=== PATIENT | male | born 1960 | race Caucasian/White ===

== ENCOUNTER 2016-06-21 21:13 | Inpatient (IN) | payer BC ==
[~2016-06-21] VITALS: Ht 185.4 cm; Wt 100.0 kg
[~2016-06-21 21:13] MED LIST: ASPI81TA11 PO; BRIL90TA PO; CARV3.125 PO; LIPI40TA PO; PERC5TAB12 PO; PRIN10TA PO; SYNT88TA PO
[2016-06-21 21:21] VITALS: BP 131/75; PULSE 96; RESP 16; TEMP 98; O2SAT 96
[2016-06-21] MEDS ORDERED: ASPIRIN 325 MG TAB ONE (21:29)
[2016-06-21] MEDS ORDERED: SODIUM CHLOR 0.9% 1000 ML INJ 1,000 ML IV SCH (21:30)
[2016-06-21] MEDS ORDERED: ASPIRIN 81 MG CHEW TAB CHEW ONE (21:30)
[2016-06-21] MEDS ORDERED: NITROGLYCERIN 0.4 MG SL 25 TABS/BTL SL ONE (21:30)
[2016-06-21] MEDS ORDERED: NITROGLYCERIN 2% OINT 1 GM PACKET TOP ONE (21:30)
[2016-06-21] MEDS ORDERED: SODIUM CHLORIDE 0.9% FLUSH 5 ML FLUSH IVF PRN ×2 (21:30→23:45)
--- NOTE | 2016-06-21 21:47 | RADRPT ---
EXAM DATE/TIME: 06/21/2016 21:23 [place] COMPARISON: CHEST SINGLE AP, May 29, 2016, 4:29. INDICATIONS : Chest pain. MEDICAL HISTORY : Hypertension. Chronic obstructive pulmonary disease. SURGICAL HISTORY : Stent placement. ENCOUNTER: Initial ACUITY: 1 day PAIN SCORE: 8/10 LOCATION: Bilateral chest FINDINGS: Mild bibasilar infiltrates seen, left more so than right. No large effusion. No pneumothorax. Heart size stable, upper limits of normal. CONCLUSION: Mild left greater than right basilar infiltrates. Mario Hill MD on June 21, 2016 at 21:44 Board Certified Radiologist. This report was verified electronically.
[2016-06-21 21:55] LABS: AUTOMATED NEUTROPHIL # 10.8 TH/MM3 (1.8-7.7); BASOPHIL # 0.2 TH/MM3 (0-0.2); BASOPHIL % 1.4 % (0.0-2.0); EOSINOPHIL # 0.5 TH/MM3 (0-0.4); HEMATOCRIT 44.6 % (39.0-51.0); HEMO FLAGS DIFF FINAL; LYMPH % 16.3 % (9.0-44.0); LYMPHOCYTE # 2.4 TH/MM3 (1.0-4.8); MEAN CORPUSCULAR HEMOGLOBIN 29.3 PG (27.0-34.0); MEAN CORPUSCULAR HGB CONC 34.5 % (32.0-36.0); MONO % 7.2 % (0.0-8.0); NEUT % 72.1 % (16.0-70.0); PLATELET COUNT 348 TH/MM3 (150-450); RED BLOOD COUNT 5.24 MIL/MM3 (4.50-5.90); RED CELL DISTRIBUTION WIDTH 13.5 % (11.6-17.2)
[2016-06-21 22:00] VITALS: BP 137/74; PULSE 87; RESP 16; O2SAT 97
[2016-06-21] MEDS ORDERED: NITROGLYCERIN-DEXTROSE INJ 250 ML IV ONE (22:00)
[2016-06-21] MEDS ORDERED: SODIUM CHLOR 0.9% 250 ML INJ 250 ML IV ONE (22:00)
[2016-06-21] MEDS ORDERED: MORPHINE SULFATE 4 MG/ML INJ IV PUSH ONE (22:00)
[2016-06-21] MEDS ORDERED: ONDANSETRON HCL 4 MG/2 ML VIAL IV PUSH ONE (22:00)
[2016-06-21 22:03] LABS: INTERNATIONAL NORMALIZED RATIO 1.1 RATIO; PROTHROMBIN TIME - PATIENT 11.7 SEC (9.8-11.6)
[2016-06-21 22:13] LABS: MAGNESIUM 2.1 MG/DL (1.5-2.5); POTASSIUM 3.7 MEQ/L (3.5-5.1)
[2016-06-21 23:00] VITALS: BP 136/63; PULSE 78; RESP 16; O2SAT 98
--- NOTE | 2016-06-21 23:28 | PD ---
HPI Chief Complaint: Chest Pain Time Seen by Provider: 21:24 Travel History International Travel<30 days: No Contact w/Intl Traveler<30days: No Traveled to known affect area: No History of Present Illness HPI 55-year-old male presents to the emergency department for complaint of retrosternal chest pain radiating into his left upper extremity with some mild shortness of breath and nausea. Patient was recently hospitalized 05/29/16 with a STEMI and underwent stenting of the right coronary vessel for an acute inferior MN. Patient was identified at that time to have LAD disease as well. Patient subsequently underwent repeat cardiac catheterization 06/10/16 and had stenting of the left anterior descending coronary vessel at that time. Patient in the care of Dr. Sunny Gustafson. Patient states that he ran out of sofatutor toe 2 days ago and has not been able to refill the prescription. Patient continues to smoke cigarettes. Patient is also had a dry nonproductive cough. Patient does not report any fever or chills. There is been no hemoptysis. Patient does not report any hematemesis coffee-ground emesis melena hematochezia. Patient's had no near-syncope or syncope. Presently patient is chest pain-free after sublingual nitroglycerin provided by EMS in transport. Patient is also administered aspirin. PFSH Past Medical History Narrative Medical CAD myocardial infarction cardiac catheterization with stenting 2 hypothyroidism eye surgery tobacco use nursing notes reviewed Cancer: No Cardiovascular Problems: Yes (+MN/STENT) Chest Pain: Yes Diabetes: No Diminished Hearing: No Endocrine: No Gastrointestinal Disorders: No Genitourinary: No Hepatitis: No Hiatal Hernia: No Hypertension: Yes Immune Disorder: No Musculoskeletal: No Neurologic: No Psychiatric: No Reproductive: No Respiratory: No Integumentary: No Immunizations Current: Yes Thyroid Disease: Yes Past Surgical History Abdominal Surgery: No Cardiac Surgery: No Ear Surgery: No Endocrine Surgery: No Eye Surgery: Yes (LENS LEFT EYE) Genitourinary Surgery: No Gynecologic Surgery: No Pacemaker: No Thoracic Surgery: No Other Surgery: Yes (IN DOCTOR OFFICE) Social History Alcohol Use: Yes Tobacco Use: Yes (1PPD) Substance Use: No Allergies-Medications (Allergen,Severity, Reaction): Coded Allergies: No Known Allergies (Unverified , 06/09/16) Reported Meds & Prescriptions Reported Meds & Active Scripts Active Reported Synthroid (Levothyroxine Sodium) 88 Mcg Tab 88 Mcg PO DAILY Prinivil (Lisinopril) 10 Mg Tab 10 Mg PO DAILY Lipitor (Atorvastatin Calcium) 40 Mg Tab 40 Mg PO HS Coreg (Carvedilol) 3.125 Mg Tab 3.125 Mg PO BID Brilinta (Ticagrelor) 90 Mg Tab 90 Mg PO BID Aspirin EC (Aspirin) 81 Mg Tabdr 81 Mg PO DAILY Percocet (Oxycodone-Acetaminophen) 5-325 mg Tab 2 Tab PO Q4H PRN Review of Systems Except as stated in HPI: all other systems reviewed are Neg Physical Exam Narrative GENERAL: Well-developed well-nourished male in no acute distress no respiratory distress SKIN: Warm and dry. HEAD: Normocephalic. EYES: No scleral icterus. No injection or drainage. NECK: Supple, trachea midline. No JVD or lymphadenopathy. CARDIOVASCULAR: Regular rate and rhythm without murmurs, gallops, or rubs. RESPIRATORY: Breath sounds equal bilaterally. No accessory muscle use. GASTROINTESTINAL: Abdomen soft, non-tender, nondistended. MUSCULOSKELETAL: No cyanosis, or edema. BACK: Nontender without obvious deformity. No CVA tenderness. Data Data Last Documented VS Vital Signs Date Time Temp Pulse Resp B/P Pulse Ox O2 Delivery O2 Flow Rate FiO2 06/21/16 23:00 78 16 136/63 98 Room Air 06/21/16 21:21 98.0 Orders Electrocardiogram (06/21/16 21:24) Basic Metabolic Panel (Bmp) (06/21/16 21:24) Ckmb (Isoenzyme) Profile (06/21/16 21:24) Complete Blood Count With Diff (06/21/16 21:24) Magnesium (Mg) (06/21/16 21:24) Prothrombin Time / Inr (Pt) (06/21/16 21:24) Act Partial Throm Time (Ptt) (06/21/16 21:24) Troponin I (06/21/16 21:24) Chest, Single Ap (06/21/16 21:24) Ecg Monitoring (06/21/16 21:24) Bilateral Bp Monitoring (06/21/16 21:24) Iv Access Insert/Monitor (06/21/16 21:24) Oximetry (06/21/16 21:24) Oxygen Administration (06/21/16 21:24) Nitroglycerin 2% Oint (Nitroglycerin 2% (06/21/16 21:30) Sodium Chloride 0.9% Flush (Ns Flush) (06/21/16 21:30) Sodium Chlor 0.9% 1000 Ml Inj (Ns 1000 M (06/21/16 21:30) Aspirin (Aspirin) (06/21/16 21:29) Nitroglycerin Sl (Nitrostat Sl) (06/21/16 21:30) Aspirin Chew (Aspirin Chew) (06/21/16 21:30) Ondansetron Inj (Zofran Inj) (06/21/16 22:00) Electrocardiogram (06/21/16 ) Nitroglycerin-Dextrose Inj (Nitroglyceri (06/21/16 22:00) Morphine Inj (Morphine Inj) (06/21/16 22:00) Sodium Chlor 0.9% 250 Ml Inj (Ns 250 Ml (06/21/16 22:00) Lactic Acid (06/21/16 22:38) Blood Culture (06/21/16 22:38) Ticagrelor (Brilinta) (06/21/16 23:30) Heparin Infusion EDMUNDO.Q1H (06/21/16 23:28) Heparin Inj (Heparin Inj) (06/21/16 23:30) Heparin-D5w Inj (Heparin-D5w Inj) (06/21/16 23:30) Cbc No Diff, Includes Plts (06/24/16 06:00) Act Partial Throm Time (Ptt) (06/22/16 06:28) Occult Blood (Hemoccult) Stool (06/21/16 23:28) Place In Observation (06/21/16 ) Vital Signs (Adult) Q4H (06/21/16 23:42) Activity Oob With Assistance (06/21/16 23:42) ^ Window Systems Administrator / Telemetry .CONTINUOUS (06/21/16 23:42) Intake + Output EDMUNDO.QSHIFT (06/21/16 23:42) Sodium Chloride 0.9% Flush (Ns Flush) (06/21/16 23:45) Sodium Chloride 0.9% Flush (Ns Flush) (06/22/16 09:00) Ondansetron Inj (Zofran Inj) (06/21/16 23:45) Complete Blood Count With Diff (06/22/16 06:00) Creatine Kinase (Cpk) (06/22/16 04:00) Creatine Kinase (Cpk) (06/22/16 10:00) Troponin I (06/22/16 04:00) Troponin I (06/22/16 10:00) Electrocardiogram (06/22/16 04:00) Electrocardiogram (06/22/16 10:00) Naloxone Inj (Narcan Inj) (06/21/16 23:45) Admit Order (Ed Use Only) (06/21/16 ) ^ Saline Lock (06/21/16 23:42) Resp Oxygen Raghu C Titrat 1-4 L (06/21/16 ) ^ Notify Dr: Other (06/21/16 23:42) Sodium Chloride 0.9% Flush (Ns Flush) (06/22/16 09:00) Sodium Chloride 0.9% Flush (Ns Flush) (06/21/16 23:45) Consult Cardiology (06/21/16 23:42) Aspirin Ec (Ecotrin Ec) (06/22/16 09:00) Atorvastatin (Lipitor) (06/22/16 21:00) Carvedilol (Coreg) (06/22/16 09:00) Levothyroxine (Synthroid) (06/22/16 06:00) Lisinopril (Prinivil) (06/22/16 09:00) Ticagrelor (Brilinta) (06/22/16 09:00) Ceftriaxone Inj (Rocephin Inj) (06/21/16 23:45) Azithromycin Inj (Zithromax Inj) (06/21/16 23:45) Basic Metabolic Panel (Bmp) (06/22/16 04:00) Labs Laboratory Tests Test 06/21/16 06/21/16 21:36 23:31 White Blood Count 15.0 TH/MM3 Red Blood Count 5.24 MIL/MM3 Hemoglobin 15.4 GM/DL Hematocrit 44.6 % Mean Corpuscular Volume 85.0 FL Mean Corpuscular Hemoglobin 29.3 PG Mean Corpuscular Hemoglobin 34.5 % Concent Red Cell Distribution Width 13.5 % Platelet Count 348 TH/MM3 Mean Platelet Volume 7.5 FL Neutrophils (%) (Auto) 72.1 % Lymphocytes (%) (Auto) 16.3 % Monocytes (%) (Auto) 7.2 % Eosinophils (%) (Auto) 3.0 % Basophils (%) (Auto) 1.4 % Neutrophils # (Auto) 10.8 TH/MM3 Lymphocytes # (Auto) 2.4 TH/MM3 Monocytes # (Auto) 1.1 TH/MM3 Eosinophils # (Auto) 0.5 TH/MM3 Basophils # (Auto) 0.2 TH/MM3 CBC Comment DIFF FINAL Differential Comment Prothrombin Time 11.7 SEC Prothromb Time International 1.1 RATIO Ratio Activated Partial 25.0 SEC Thromboplast Time Sodium Level 138 MEQ/L Potassium Level 3.7 MEQ/L Chloride Level 103 MEQ/L Carbon Dioxide Level 27.0 MEQ/L Anion Gap 8 MEQ/L Blood Urea Nitrogen 18 MG/DL Creatinine 1.12 MG/DL Estimat Glomerular Filtration 68 ML/MIN Rate Random Glucose 218 MG/DL Calcium Level 8.3 MG/DL Magnesium Level 2.1 MG/DL Total Creatine Kinase 63 U/L Troponin I 0.03 NG/ML Lactic Acid Level 1.4 mmol/L [facility] Medical Decision Making Medical Screen Exam Complete: Yes Emergency Medical Condition: Yes Medical Record Reviewed: Yes Interpretation(s) EKG normal sinus rhythm no ST elevation or acute injury pattern change noted Chest x-ray basilar infiltrates left greater than right Laboratory Tests Test 06/21/16 06/21/16 21:36 23:31 White Blood Count 15.0 TH/MM3 Red Blood Count 5.24 MIL/MM3 Hemoglobin 15.4 GM/DL Hematocrit 44.6 % Mean Corpuscular Volume 85.0 FL Mean Corpuscular Hemoglobin 29.3 PG Mean Corpuscular Hemoglobin 34.5 % Concent Red Cell Distribution Width 13.5 % Platelet Count 348 TH/MM3 Mean Platelet Volume 7.5 FL Neutrophils (%) (Auto) 72.1 % Lymphocytes (%) (Auto) 16.3 % Monocytes (%) (Auto) 7.2 % Eosinophils (%) (Auto) 3.0 % Basophils (%) (Auto) 1.4 % Neutrophils # (Auto) 10.8 TH/MM3 Lymphocytes # (Auto) 2.4 TH/MM3 Monocytes # (Auto) 1.1 TH/MM3 Eosinophils # (Auto) 0.5 TH/MM3 Basophils # (Auto) 0.2 TH/MM3 CBC Comment DIFF FINAL Differential Comment Prothrombin Time 11.7 SEC Prothromb Time International 1.1 RATIO Ratio Activated Partial 25.0 SEC Thromboplast Time Sodium Level 138 MEQ/L Potassium Level 3.7 MEQ/L Chloride Level 103 MEQ/L Carbon Dioxide Level 27.0 MEQ/L Anion Gap 8 MEQ/L Blood Urea Nitrogen 18 MG/DL Creatinine 1.12 MG/DL Estimat Glomerular Filtration 68 ML/MIN Rate Random Glucose 218 MG/DL Calcium Level 8.3 MG/DL Magnesium Level 2.1 MG/DL Total Creatine Kinase 63 U/L Troponin I 0.03 NG/ML Lactic Acid Level 1.4 mmol/L Differential Diagnosis Chest pain, ACS, myocardial infarction, atypical chest pain, esophageal spasm, aortic dissection, pneumonia Narrative Course Patient placed on monitor and storage bin tender IV access obtained specimens collected and sent for resulting patient administered Nitropaste to chest wall EKG sinus rhythm without acute ST elevation or injury pattern change Chest x-ray remarkable for basilar atelectasis/infiltrate left greater than right Patient reports having recurrent chest discomfort feeling lightheaded and diaphoretic patient reassessed; Nitropaste removed as concern for possible hypotensive response to Nitropaste to chest wall patient placed supine Zofran 4 mg IV administered blood pressure is stable therefore Nitropaste was In place and patient was administered morphine 3 mg IV as well as IV fluid bolus next line patient feels well no further chest pain plan to initiate nitroglycerin IV deferred. Patient identified to have infiltrates bibasilarly lactic acid obtained along with blood cultures and presumptive IV antibiotics administered. Patient's case discussed with on-call crinkling machine operator Dr. Huynh covering for patient's crinkling machine operator Dr. Sunny Gustafson. Patient will be admitted to medicine with consult to Dr. Gustafson patient started on heparin with bolus and continued on Brilinta. Patient is aware plan for admission and is agreeable to this remains asymptomatic. Patient will be managed with nitroglycerin aspirin Brilinta heparin and supplemental oxygen, remains asymptomatic at this time for concern for ACS versus non-STEMI is still a significant concern in this patient has required re-catheterization 06/10/16 after initial catheterization 05/29/16. Initial troponin I 0.[address] called to Dr. Sunny Gustafson-case discussed with Dr. Huynh-recommends resuming brilinta, is aware plan to add heparin and recommends with bolus as well as continue nitro paste and aspirin with recommendation for observation admission to medicine and consult to Dr. Gustafson in the a.m.; case discussed with Dr. Mae who graciously accepts the patient for admission Diagnosis Primary Impression: Chest pain Qualified Code: R07.2 - Precordial pain Additional Impression: Pulmonary infiltrates on CXR Admitting Information Admitting Physician Requests: Observation Yoli Spain MD Jun 21, 2016 23:28
[2016-06-21] MEDS ORDERED: TICAGRELOR 90 MG TAB PO ONE (23:30)
[2016-06-21] MEDS ORDERED: HEPARIN SODIUM - IV 10,000 UNITS/10 ML VIAL IV ONE (23:30)
[2016-06-21] MEDS ORDERED: NALOXONE HCL 0.4 MG/ML AMP IV PRN (23:45)
[2016-06-21] MEDS ORDERED: ONDANSETRON HCL 4 MG/2 ML VIAL IVP PRN (23:45)
[2016-06-21] MEDS ORDERED: SODIUM CHLORIDE 0.9% FLUSH 5 ML FLUSH FLUSH PRN (23:45)
[2016-06-21] MEDS ORDERED: AZITHROMYCIN INJ 500 MG in SODIUM CHLOR 0.9% 250 ML INJ 250 ML IV ONE (23:45)
[2016-06-21] MEDS ORDERED: cefTRIAXone INJ 1,000 MG in SODIUM CHLORIDE 0.9% INJ 100 ML IV ONE (23:45)
[2016-06-22] VITALS (12 sets, daily range): BP systolic 106–138; BP diastolic 56–87; PULSE 64–82; RESP 16–21; TEMP 95.8–98.8; O2SAT 95–99
[2016-06-22] MEDS: HEPARIN-D5W INJ 250 ML IV SCH ×2 (00:19→20:58)
[2016-06-22 04:23] LABS: AUTOMATED NEUTROPHIL # 8.3 TH/MM3 (1.8-7.7); BASOPHIL # 0.3 TH/MM3 (0-0.2); BASOPHIL % 2.2 % (0.0-2.0); EOSINOPHIL # 0.4 TH/MM3 (0-0.4); EOSINOPHIL % 3.1 % (0.0-4.0); HEMATOCRIT 42.3 % (39.0-51.0); HEMO FLAGS DIFF FINAL; LYMPH % 24.3 % (9.0-44.0); LYMPHOCYTE # 3.2 TH/MM3 (1.0-4.8); MEAN CELL VOLUME 85.8 FL (80.0-100.0); MEAN CORPUSCULAR HEMOGLOBIN 29.3 PG (27.0-34.0); MEAN CORPUSCULAR HGB CONC 34.2 % (32.0-36.0); MONO % 7.9 % (0.0-8.0); NEUT % 62.5 % (16.0-70.0); PLATELET COUNT 304 TH/MM3 (150-450); RED BLOOD COUNT 4.93 MIL/MM3 (4.50-5.90); RED CELL DISTRIBUTION WIDTH 13.8 % (11.6-17.2); WHITE BLOOD COUNT 13.3 TH/MM3 (4.0-11.0)
[2016-06-22 04:39] LABS: APTT (PATIENT) 35.9 SEC (24.3-30.1)
[2016-06-22 04:49] LABS: BICARBONATE 26.9 MEQ/L (21.0-32.0)
[2016-06-22] MEDS: LEVOTHYROXINE SODIUM 88 MCG TAB PO SCH (05:31)
[2016-06-22] MEDS: LEVOFLOXACIN 750 MG PREMIX INJ 150 ML IV SCH (05:32)
[2016-06-22] MEDS ORDERED: TICAGRELOR 90 MG TAB PO ONE (08:30)
--- NOTE | 2016-06-22 08:50 | MB ---
cc: MARNI MAY M.D. DATE OF CONSULTATION: 06/22/2016 REASON FOR CONSULTATION Evaluation of chest pain and elevated troponin. HISTORY OF PRESENT ILLNESS Haja Bennett is a 55-year-old man well-known to me. He has known coronary artery disease. His cardiac history began May 29 when he had an acute inferior wall myocardial infarction. He had stenting of the proximal and mid right coronary artery utilizing a 3.5 x 22 mm Resolute stent in the mid vessel and a 4.0 x 22 mm in the proximal vessel. He had a severe mid posterior descending artery branch stenosis that was treated with balloon angioplasty at that time he also had high-grade LAD disease. He underwent a repeat procedure June 08, 2016. This was a rotational atherectomy of the LAD with placement of two stents. The first was a 2.5 x 38 mm Xience. The second was a 2.75 x 18 mm Xience. These were post dilated with a 3.0 noncompliant balloon along the entire length. There was some jailing of some small diseased diagonals. The procedure, however, was successful. The patient was doing well, was in his usual state of health without angina. He was walking. He ran out of Brilinta and did not know to refill it. There were no refills on the bottle and assumed that he could just stop it. It is unclear how many days prior to this admission he stopped it. He says he thinks it was 2-3 days. Last night around 7:00 p.m. he developed substernal chest pain with radiation to the left arm. He took two nitroglycerin at home. A third nitro was given in the ambulance and a fourth nitro here in the ER. His chest pain has resolved. He is on IV heparin. He has received one dose of Brilinta as a loading dose. He is also complaining of a dry cough with very minimal phlegm production. He has quit smoking. He says he was feeling fine until yesterday. PAST MEDICAL HISTORY 1. Coronary artery disease. 2. Dyslipidemia with low HDL. 3. Tobacco use. PAST SURGICAL HISTORY Cath and stent procedures. MEDICATIONS 1. Aspirin 81 mg daily. 2. Brilinta 90 mg p.o. b.i.d., which he has been out of. 3. Carvedilol 3.125 b.i.d. 4. Atorvastatin 40 mg daily. 5. Lisinopril 10 mg daily. 6. Synthroid 88 mcg daily. ALLERGIES None known. FAMILY HISTORY Positive for heart disease in his father, grandfather and grandmother. SOCIAL HISTORY Minimal alcohol. Smoking 1-2 packs a day prior to his infarct. PHYSICAL EXAMINATION GENERAL: A well-developed, well-nourished white male in no acute distress. VITAL SIGNS: Charted. HEENT: Unremarkable. NECK: No JVD. No bruits. CHEST: Clear to auscultation. CARDIAC: S1, S2 normal. Regular rate and rhythm. No murmurs or gallops. ABDOMEN: Soft, nontender. No masses or organomegaly. EXTREMITIES: No clubbing, cyanosis or edema. EKG DATA EKG shows sinus rhythm with small Q-waves from his previous inferior infarct. There are no acute ST-T wave changes. LABORATORY DATA White count is currently 13,300, hematocrit 42.3. Creatinine is 0.85. Troponin went from 0.03 to 3.33. IMPRESSION/PLAN Status post acute [id number] elevation myocardial infarction. There is no question that stopping the Brilinta prior to hospitalization has led to this event. Brilinta is being resumed with a stat. loading dose. Continue IV heparin. Pulmonary evaluation for his infiltrates. Further therapy to be determined. ADDENDUM He gave considerable thought to repeating a cardiac catheterization in view of the elevation of the troponin and chest pain. I feel this is most likely caused by him being off of his Brilinta. However, with clear evidence of an infarct, I think it would be best if we repeated a cath this admission. I have him scheduled for a catheterization tomorrow morning at 7:30 a.m. I went over this in detail with the patient. Informed consent has been obtained. Further therapy to be determined. MD ESTHER Hoover/ANTONETTE /8:29 AM /9:14 AM
[2016-06-22] MEDS: SODIUM CHLOR 0.9% 1000 ML INJ 1,000 ML IV SCH (09:00)
[2016-06-22] MEDS ORDERED: DIAZEPAM 5 MG TAB PO SCH (09:00)
[2016-06-22] MEDS ORDERED: SODIUM CHLORIDE 0.9% FLUSH 5 ML FLUSH IVF SCH (09:00)
[2016-06-22] MEDS: SODIUM CHLORIDE 0.9% FLUSH 5 ML FLUSH FLUSH SCH ×2 (09:00→20:49)
[2016-06-22] MEDS ORDERED: TICAGRELOR 90 MG TAB PO SCH (09:00)
[2016-06-22] MEDS ORDERED: LISINOPRIL 10 MG TAB PO SCH (09:00)
[2016-06-22] MEDS ORDERED: diphenhydrAMINE HCL 50 MG CAP PO SCH (09:00)
[2016-06-22] MEDS: ASPIRIN EC 81 MG TABEC PO SCH (09:24)
[2016-06-22] MEDS: LOSARTAN 25 MG TAB PO SCH (09:24)
[2016-06-22] MEDS: CARVEDILOL 3.125 MG TAB PO SCH ×2 (09:24→20:50)
--- NOTE | 2016-06-22 12:03 | HHI.HP ---
[facility] Primary Care Physician Dyllan Hutton MD Admission Diagnosis chest pain h/o mi; poss LLL infiltrate Diagnoses: (1) Non-ST elevation [place] (NSTEMI) (2) Community acquired pneumonia Chief Complaint: chest pain Travel History International Travel<30 Days: No Contact w/Intl Traveler <30 Da: No Traveled to Known Affected Are: No History of Present Illness 55-year-old male with a history of recent STEMI 05/29/16 and status post stenting of the right coronary vessel presented to the ED for evaluation of an acute onset of substernal chest pain rated at the time 10/10 in intensity described as crushing and not relieved with nitroglycerin sublingual times 2, will radiations to his left upper extremity and associated with some mild shortness of breath as well as nausea without any emesis. However since admission patient has had resolution of his chest pain. Patient reports he is being out of Brilinta. Patient also reports with history of cough production of phlegm without any febrile episode or any associated chills. He denies any hematochezia, hemoptysis or any GI bleed. Checks x-ray finding of bilateral pulmonary infiltrates with leukocytosis. Review of Systems Other Other 12 systems reviewed and are negative is a 41 dementia and history of present illness Past Family Social History Past Medical History CAD Hyperlipidemia History of tobacco use Past Surgical History History of cardiac stents x4 placed Reported Medications 1. Aspirin 81 mg daily. 2. Brilinta 90 mg p.o. b.i.d. 3. Carvedilol 3.125 b.i.d. 4. Atorvastatin 40 mg daily. 5. Lisinopril 10 mg daily. 6. Synthroid 88 mcg daily. Allergies: Coded Allergies: No Known Allergies (Unverified , 06/09/16) Family History Strong family history of heart disease in his father, grandfather and grandmother. Social History Now only smokes 4 cigarettes per day; reports social alcohol and denies any illicit drug use Physical Exam Vital Signs Vital Signs Date Time Temp Pulse Resp B/P Pulse Ox O2 Delivery O2 Flow Rate FiO2 06/22/16 10:31 95 21 06/22/16 08:00 96.7 69 20 122/73 96 06/22/16 03:20 72 06/22/16 03:04 98.8 71 21 130/72 99 06/22/16 01:00 80 16 106/66 97 Room Air 06/22/16 00:12 95 06/22/16 00:00 82 16 113/56 96 Room Air 06/21/16 23:00 78 16 136/63 98 Room Air 06/21/16 22:00 87 16 137/74 97 Room Air 06/21/16 21:21 98.0 96 16 131/75 96 Room Air Physical Exam GENERAL: This is a well-nourished, well-developed patient, in no apparent distress. SKIN: No rashes, ecchymoses or lesions. Cool and dry. HEAD: Atraumatic. Normocephalic. No temporal or scalp tenderness. EYES: Pupils equal round and reactive. Extraocular motions intact. No scleral icterus. No injection or drainage. ENT: Nose without bleeding, purulent drainage or septal hematoma. Throat without erythema, tonsillar hypertrophy or exudate. Uvula midline. Airway patent. NECK: Trachea midline. No JVD or lymphadenopathy. Supple, nontender, no meningeal signs. CARDIOVASCULAR: Regular rate and rhythm without murmurs, gallops, or rubs. RESPIRATORY: Clear to auscultation. Breath sounds equal bilaterally. No wheezes , rales, or rhonchi. GASTROINTESTINAL: Abdomen soft, non-tender, nondistended. No hepato-splenomegaly , or palpable masses. No guarding. MUSCULOSKELETAL: Extremities without clubbing, cyanosis, or edema. No joint tenderness, effusion, or edema noted. No calf tenderness. Negative Homans sign bilaterally. NEUROLOGICAL: Awake and alert. Cranial nerves II through XII intact. Motor and sensory grossly within normal limits. Five out of 5 muscle strength in all muscle groups. Normal speech. Laboratory Laboratory Tests Test 06/21/16 06/21/16 06/22/16 06/22/16 21:36 23:31 03:57 10:04 White Blood Count 15.0 13.3 Red Blood Count 5.24 4.93 Hemoglobin 15.4 14.5 Hematocrit 44.6 42.3 Mean Corpuscular Volume 85.0 85.8 Mean Corpuscular Hemoglobin 29.3 29.3 Mean Corpuscular Hemoglobin 34.5 34.2 Concent Red Cell Distribution Width 13.5 13.8 Platelet Count 348 304 Mean Platelet Volume 7.5 7.6 Neutrophils (%) (Auto) 72.1 62.5 Lymphocytes (%) (Auto) 16.3 24.3 Monocytes (%) (Auto) 7.2 7.9 Eosinophils (%) (Auto) 3.0 3.1 Basophils (%) (Auto) 1.4 2.2 Neutrophils # (Auto) 10.8 8.3 Lymphocytes # (Auto) 2.4 3.2 Monocytes # (Auto) 1.1 1.1 Eosinophils # (Auto) 0.5 0.4 Basophils # (Auto) 0.2 0.3 CBC Comment DIFF FINAL DIFF FINAL Differential Comment Prothrombin Time 11.7 Prothromb Time International 1.1 Ratio Activated Partial 25.0 35.9 32.0 Thromboplast Time Sodium Level 138 141 Potassium Level 3.7 4.0 Chloride Level 103 108 Carbon Dioxide Level 27.0 26.9 Anion Gap 8 6 Blood Urea Nitrogen 18 23 Creatinine 1.12 0.85 Estimat Glomerular Filtration 68 93 Rate Random Glucose 218 115 Calcium Level 8.3 7.9 Magnesium Level 2.1 Total Creatine Kinase 63 58 54 Troponin I 0.03 0.33 0.88 Lactic Acid Level 1.4 Date/Time Procedure Status Source Growth 06/21/16 23:31 Aerobic Blood Culture - Preliminary Resulted Blood Peripheral NO GROWTH IN 1 DAY 06/21/16 23:31 Anaerobic Blood Culture - Preliminary Resulted Blood Peripheral NO GROWTH IN 1 DAY Result Diagram: 06/22/16 0357 06/22/167 Imaging Last Impressions Chest X-Ray 06/21/162123 Signed Impressions: Service Date/Time: Tuesday, June 21, 2016 21:23 - CONCLUSION: Mild left greater than right basilar infiltrates. Mario Hill MD Assessment and Plan Problem List: (1) Non-ST elevation [place] (NSTEMI) ICD Code: I21.4 Status: Acute (2) Community acquired pneumonia ICD Code: J18.9 Status: Acute (3) Stented coronary artery ICD Code: Z95.5 Status: Chronic (4) Hyperlipidemia ICD Code: E78.5 Status: Chronic (5) Tobacco consumption ICD Code: Z72.0 Status: Chronic Assessment and Plan 55-year-old male with 1-Non-ST elevation [place]: Cardiology has been consulted and plan for left heart catheterization 06/23/16 as patient with multiple history of recent cardiac stents. Continue with heparin drip, Brilinta, aspirin,Coreg 3.125mg BID, Cozaar and telemetry monitoring 5-Whqbgrqxj-tttavuwx pneumonia: Chest x-ray noted and reviewed by me with finding of bilateral pulmonary infiltrates, started post azithromycin and Rocephin and now on IV Levaquin daily and maintain oxygen saturation above 92% 3-Hyperlipidemia: On statin 4-Hypertension: On Coreg, Cozaar 5-Hypothyroidism: Resume Synthroid 6-History of tobacco abuse: Counseled to quit 7-DVT prophylaxis: Heparin drip Code Status Full code Discussed Condition With Patient Physician Certification 2 Midnight Certification Type: Admission for Inpatient Services Order for Inpatient Services The services are ordered in accordance with Medicare regulations or non- Medicare payer requirements, as applicable. In the case of services not specified as inpatient-only, they are appropriately provided as inpatient services in accordance with the 2-midnight benchmark. Estimated LOS (days): 2 days is the estimated time the patient will need to remain in the hospital, assuming treatment plan goals are met and no additional complications. Post-Hospital Plan: Not yet determined Vinay Herrera MD Jun 22, 2016 12:03 3-Iyuywgarm-wtbqwdxu pneumonia: Chest x-ray noted and reviewed by me with finding of bilateral pulmonary infiltrates, started post azithromycin and Rocephin and now on IV Levaquin daily and maintain oxygen saturation above 92% 3-Hyperlipidemia: On statin 4-Hypertension: On Coreg, Cozaar 5-Hypothyroidism: Resume Synthroid 6-History of tobacco abuse: Counseled to quit 7-DVT prophylaxis: Heparin drip Code Status Full code Discussed Condition With Patient Physician Certification 2 Midnight Certification Type: Admission for Inpatient Services Order for Inpatient Services The services are ordered in accordance with Medicare regulations or non- Medicare payer requirements, as applicable. In the case of services not specified as inpatient-only, they are appropriately provided as inpatient services in accordance with the 2-midnight benchmark. Estimated LOS (days): 2 days is the estimated time the patient will need to remain in the hospital, assuming treatment plan goals are met and no additional complications. Post-Hospital Plan: Not yet determined Vinay Herrera MD Jun 22, 2016 12:03
[2016-06-22 18:33] LABS: APTT (PATIENT) 35.7 SEC (24.3-30.1)
[2016-06-22] MEDS: TICAGRELOR 90 MG TAB PO SCH (20:50)
[2016-06-22] MEDS ORDERED: ATORVASTATIN 40 MG TAB PO SCH (21:00)
--- NOTE | 2016-06-22 23:33 | EKG ---
Date Performed: 06/22/2016 Time Performed: 10:10:55 PTAGE: 55 years EKG: Sinus rhythm INTRAVENTRICULAR CONDUCTION DELAY PROBABLE INFERIOR MYOCARDIAL INFARCTION ABNORMAL ECG PREVIOUS TRACING : 06/22/2016 04.03 DOCTOR: Dimas Moss Interpretating Date/Time 06/22/2016 23:32:29
--- NOTE | 2016-06-22 23:43 | EKG ---
Date Performed: 06/22/2016 Time Performed: 04:03:46 PTAGE: 55 years EKG: Sinus rhythm INTRAVENTRICULAR CONDUCTION DELAY INFERIOR MYOCARDIAL INFARCTION ABNORMAL ECG PREVIOUS TRACING : 06/10/2016 04.48 DOCTOR: Dimas Moss Interpretating Date/Time 06/22/2016 23:40:30
--- NOTE | 2016-06-22 23:49 | EKG ---
Date Performed: 06/21/2016 Time Performed: 21:53:58 PTAGE: 55 years EKG: Sinus rhythm INTRAVENTRICULAR CONDUCTION DELAY PROBABLE LATERAL MYOCARDIAL INFARCTION INFERIOR MYOCARDIAL INFARCT ION ABNORMAL ECG NO PREVIOUS TRACING DOCTOR: Dimas Moss Interpretating Date/Time 06/22/2016 23:42:51
--- NOTE | 2016-06-22 23:50 | EKG ---
Date Performed: 06/21/2016 Time Performed: 21:22:12 PTAGE: 55 years EKG: Sinus rhythm RIGHT BUNDLE BRANCH BLOCK PROBABLE ANTERIOR MYOCARDIAL INFARCTION ABNORMAL ECG NO PREVIOUS TRACING DOCTOR: iDmas Moss Interpretating Date/Time 06/22/2016 23:43:17
[2016-06-23 00:47] LABS: APTT (PATIENT) 35.4 SEC (24.3-30.1)
[2016-06-23 01:16] VITALS: BP 132/74; PULSE 74; RESP 21; TEMP 97.6; O2SAT 98
[2016-06-23] MEDS: SODIUM CHLOR 0.9% 1000 ML INJ 1,000 ML IV SCH ×2 (01:16→09:06)
[2016-06-23 03:33] VITALS: BP 141/83; PULSE 67; RESP 21; TEMP 98.2; O2SAT 97
[2016-06-23] MEDS: LEVOTHYROXINE SODIUM 88 MCG TAB PO SCH (03:41)
[2016-06-23] MEDS: LEVOFLOXACIN 750 MG PREMIX INJ 150 ML IV SCH (04:16)
[2016-06-23 05:22] LABS: AUTOMATED NEUTROPHIL # 7.8 TH/MM3 (1.8-7.7); BASOPHIL # 0.1 TH/MM3 (0-0.2); BASOPHIL % 1.1 % (0.0-2.0); EOSINOPHIL # 0.4 TH/MM3 (0-0.4); HEMATOCRIT 44.4 % (39.0-51.0); HEMO FLAGS DIFF FINAL; LYMPH % 18.2 % (9.0-44.0); MEAN CELL VOLUME 84.9 FL (80.0-100.0); MEAN CORPUSCULAR HEMOGLOBIN 28.9 PG (27.0-34.0); MEAN CORPUSCULAR HGB CONC 34.1 % (32.0-36.0); MONO % 7.1 % (0.0-8.0); NEUT % 69.6 % (16.0-70.0); PLATELET COUNT 275 TH/MM3 (150-450); RED BLOOD COUNT 5.23 MIL/MM3 (4.50-5.90); RED CELL DISTRIBUTION WIDTH 13.8 % (11.6-17.2); WHITE BLOOD COUNT 11.2 TH/MM3 (4.0-11.0)
[2016-06-23 05:37] LABS: APTT (PATIENT) 39.9 SEC (24.3-30.1)
[2016-06-23 05:42] LABS: POTASSIUM 4.1 MEQ/L (3.5-5.1)
[2016-06-23] MEDS ORDERED: HEPARIN-NS/PF INJ 500 ML ONE (07:27)
[2016-06-23] MEDS ORDERED: MIDAZOLAM HCL 2 MG/2 ML VIAL ONE ×2 (07:28→07:55)
[2016-06-23 07:50] VITALS: BP 129/70; PULSE 68; RESP 18; TEMP 97.6; O2SAT 97
[2016-06-23] MEDS ORDERED: MORPHINE SULFATE 8 MG/ML INJ ONE (08:10)
[2016-06-23] MEDS ORDERED: IOHEXOL 350 MG/ML 100 ML BTL (for Cath Lab) OTHER ONE (08:15)
[2016-06-23 08:24] VITALS: O2SAT 97
[2016-06-23] MEDS ORDERED: SODIUM CHLOR 0.9% 1000 ML INJ 1,000 ML IV SCH (08:27)
[2016-06-23] MEDS ORDERED: ONDANSETRON HCL 4 MG/2 ML VIAL IV PRN (08:30)
[2016-06-23] MEDS ORDERED: SODIUM CHLORIDE 0.9% FLUSH 5 ML FLUSH IVF PRN (08:30)
[2016-06-23] MEDS ORDERED: BACITRACIN OINT 0.9 GM PKT TOP ONE (08:30)
[2016-06-23] MEDS ORDERED: SODIUM CHLOR 0.9% 250 ML INJ 250 ML IV PRN (08:30)
[2016-06-23] MEDS ORDERED: MISC INFORMATION XX ONE (08:30)
[2016-06-23] MEDS ORDERED: ATROPINE SULFATE 1 MG/ML VIAL IV PRN (08:30)
[2016-06-23] MEDS ORDERED: SODIUM CHLORIDE 0.9% FLUSH 5 ML FLUSH IVF SCH (09:00)
[2016-06-23] MEDS: ASPIRIN EC 81 MG TABEC PO SCH (09:00)
[2016-06-23] MEDS: CARVEDILOL 3.125 MG TAB PO SCH (09:00)
[2016-06-23] MEDS: TICAGRELOR 90 MG TAB PO SCH (09:00)
[2016-06-23] MEDS: LOSARTAN 25 MG TAB PO SCH (09:00)
--- NOTE | 2016-06-23 09:10 | MA ---
cc: MARNI MAY M.D. DATE: 06/23/2016 PROCEDURE PERFORMED Left heart catheterization, left ventriculography, coronary angiography. BRIEF HISTORY Haja Bennett is a 55-year-old man with known coronary artery disease. He had an acute inferior STEMI in April and had tandem stenting of the proximal mid right coronary artery and balloon angioplasty of the posterior ascending artery branch. Then he was brought in electively 10 days later and had rotational atherectomy and tandem stenting of the LAD. He ran out of his Brilinta at home and did not think to call anyone or try to get it refilled and just decided he would go off of it. How long he had been off of it is not clear, but at least two days. He developed abrupt onset of chest pain which brought him into the hospital and he is ruled in for a small non-ST segment elevation SD. Brilinta has been restarted and he was on a heparin drip when he was brought to the lab. DESCRIPTION OF PROCEDURE The patient was brought to the cardiac label stamper in a fasting state. He received a total of 3 mg of IV Versed for sedation and additional 3 mg of morphine for back pain at the end of the case. Even with that he was awake during the case. Using 1% lidocaine for local anesthesia I inserted a 6-1/2-Slovak sheath in the right femoral artery. I went a half a centimeter above the old insertion site to avoid the Angio-Seal plug. Access was obtained of the first stick and was uncomplicated. Next, coronary angiography was completed using a left 5 Ba for the left coronary artery and a 3DRC for the left coronary artery. Left main is very short so the catheter tends to select the LAD. Angiography of the right coronary artery was then performed using a 3DRC catheter. Films were studied, medical therapy selected, the sheath is to be pulled manually. There were no complications. The heparin has been turned off. LV gram was performed at the end of the case. FINDINGS 1. Hemodynamics. Left ventriculography was 142/20 with an end-diastolic pressure of 31. Aortic pressure is 137/60 with mean of 97. There is no gradient during pullback from left ventricle to the aorta. 2. Left ventriculography. Left ventriculography shows normal ejection fraction of 55%. Cannot exclude the possibility of a trivial degree of anterolateral hypokinesis, inferior wall moves well. 3. Coronary angiography. Left main coronary artery is short and normal-appearing. The left anterior descending artery has some proximal irregularities about 20%. The first branch off the LAD is the major diagonal branch, diagonal branch actually gives off a small septal branches as well. This diagonal branch demonstrates moderate 40% disease. Immediately past the diagonal branch is the start of an extensive zone of STEMI of the proximal mid LAD. This entire stented segment has a step-up on both ends. There is good flow through the stent, there is no thrombus. There is some ulceration possibly representing eccentric deep dissection in the proximal portion of the stent but no compromise of the lumen and this was actually noted after the previous procedure he had done. The second diagonal branch has a 70% proximal and ostial tubular stenosis. This vessel is only 2 mm in size and was not intervened upon previously. Distally to the stents the distal LAD is diffusely small caliber but no stenosis. The circumflex artery consists of one major obtuse marginal branch and has about 10% irregularities. The right coronary artery is a large dominant vessel. The initial segment of the right coronary artery has 10-20% irregularities followed by widely patent proximal and mid stents, distally there is a couple 25% stenoses. It bifurcates into the PDA and posterolateral branch. The midportion of the PDA at the site of previous balloon angioplasty has only about 35% stenosis. CONCLUSION 1. Preserved left ventricular function. 2. Elevated left ventricular end-diastolic pressure. 3. Satisfactory results from previous right coronary artery and LAD stenting. There is residual disease in the diagonal branch that would be treated medically. PLAN Continue aspirin and Brilinta. Will allow him to be discharged home later today. MD ESTHER Hoover/TLL /8:24 AM /8:43 AM
--- NOTE | 2016-06-23 10:06 | HHI.PR ---
Subjective Remarks Follow-up non-ST elevation [place]/community-acquired pneumonia 06/23/16-patient seen and examined in DOCU after heart catheterization; denies any chest pain or shortness of breath. Vitals currently afebrile. Stable. Patient clear for discharge by cardiology. Objective Vitals Vital Signs Date Time Temp Pulse Resp B/P Pulse Ox O2 Delivery O2 Flow Rate FiO2 06/23/16 09:30 97 Room Air 06/23/16 08:24 97 21 06/23/16 07:50 97.6 68 18 129/70 97 06/23/16 07:50 Room Air 06/23/16 03:33 98.2 67 21 141/83 97 06/23/16 01:16 97.6 74 21 132/74 98 06/22/16 20:57 65 06/22/16 19:21 98.7 69 21 137/87 98 06/22/16 15:46 95.8 64 20 138/84 97 06/22/16 12:21 66 06/22/16 12:00 97.3 64 20 135/76 97 06/22/16 10:31 95 21 I/O 06/22/16 06/22/16 06/22/16 06/23/16 06/23/16 06/23/16 07:00 15:00 23:00 07:00 15:00 23:00 Intake Total 939 ml 120 ml 960 ml 400 ml Output Total 600 ml Balance 939 ml 120 ml 960 ml -200 ml Intake Oral 120 ml 960 ml 0 ml IV Total 939 ml 400 ml Output Urine Total 600 ml # Voids 1 2 2 Result Diagram: 06/23/16 0501 06/23/16 0501 Imaging Last Impressions Chest X-Ray 06/21/162123 Signed Impressions: Service Date/Time: Tuesday, June 21, 2016 21:23 - CONCLUSION: Mild left greater than right basilar infiltrates. Mario Hill MD Objective Remarks GENERAL: NAD SKIN: Warm and dry. HEAD: Normocephalic. EYES: No scleral icterus. No injection or drainage. NECK: Supple, trachea midline. No JVD or lymphadenopathy. CARDIOVASCULAR: Regular rate and rhythm without murmurs, gallops, or rubs. RESPIRATORY: Breath sounds equal bilaterally. No accessory muscle use. GASTROINTESTINAL: Abdomen soft, non-tender, nondistended. MUSCULOSKELETAL: No cyanosis, or edema. BACK: Nontender without obvious deformity. No CVA tenderness. A/P Problem List: (1) Non-ST elevation [place] (NSTEMI) ICD Code: I21.4 Status: Acute (2) Community acquired pneumonia ICD Code: J18.9 Status: Acute (3) Stented coronary artery ICD Code: Z95.5 Status: Chronic (4) Hyperlipidemia ICD Code: E78.5 Status: Chronic (5) Tobacco consumption ICD Code: Z72.0 Status: Chronic Assessment and Plan 55-year-old male with 1-Non-ST elevation [place]: Cardiology has been consulted and s/p left heart catheterization today 06/23/16 with finding of preserved left ventricular function and advise to continue with aspirin, Brilinta. Patient was clear for discharge by cardiology 1-Gkvopiysx-rybealxm pneumonia: Chest x-ray with finding of bilateral pulmonary infiltrates, status post azithromycin and Rocephin and now on IV Levaquin daily and maintain oxygen saturation above 92%. Will discharge home on by mouth Levaquin 3-Hyperlipidemia: On statin 4-Hypertension: On Coreg, Cozaar 5-Hypothyroidism: Continue Synthroid 6-History of tobacco abuse: Counseled to quit 7-DVT prophylaxis: Heparin drip Since admission, patient condition tremendously improved therefore he will be discharged home today 06/23/16 Discharge Planning Discharge patient to home Condition on discharge: Improved Regular Diet as tolerated Ad Isabell activity Rx written:see EMR Follow-up with primary care physician in one week Cardiology 1-2 weeks Vinay Herrera MD Jun 23, 2016 10:06
[2016-06-23] MEDS ORDERED: CARV3.125 PO (10:11)
[2016-06-23] MEDS ORDERED: ASPI81TA11 PO (10:11)
[2016-06-23] MEDS ORDERED: LIPI40TA PO (10:11)
[2016-06-23] MEDS ORDERED: COZA25TA PO (10:11)
[2016-06-23] MEDS ORDERED: BRIL90TA PO (10:11)
[2016-06-23] MEDS ORDERED: LEVO750T33 PO (10:11)
== END 2016-06-23 10:12 | disposition home or self-care (01) | DRG 280 ==
LOC: NEPC 21:13 → NEDA 23:45 → NEPFCDU 06-22 02:48 → OBSVTOIN 06-22 04:07 → N04B 06-23 10:07
PROVIDERS: ADMIT Hospitalist; ATTEND Hospitalist
PROC: B2111ZZ Fluoroscopy of Multiple Coronary Arteries using Low Osmolar Contrast (ICD-10-PCS; 2016-06-23)
PROC: B2151ZZ Fluoroscopy of Left Heart using Low Osmolar Contrast (ICD-10-PCS; 2016-06-23)
PROC: 4A023N7 Measurement of Cardiac Sampling and Pressure, Left Heart, Percutaneous Approach (ICD-10-PCS; principal; 2016-06-23 07:30)
DX: I22.2 Subsequent non-ST elevation (NSTEMI) myocardial infarction (principal); J18.9 Pneumonia, unspecified organism; I21.19 ST elevation (STEMI) myocardial infarction involving other coronary artery of inferior wall; I25.10 Atherosclerotic heart disease of native coronary artery without angina pectoris; E78.5 Hyperlipidemia, unspecified; F17.210 Nicotine dependence, cigarettes, uncomplicated; I10 Essential (primary) hypertension; E03.9 Hypothyroidism, unspecified; Z95.5 Presence of coronary angioplasty implant and graft
CPT/HCPCS: 71010; 80048; 82550; 83605; 83735; 84484; 85025; 85610; 85730; 87040; 93005; 93458; 96361; 96374; 96375; C1769; C1893; J0456; J0696; J1644; J1956; J2250; J2270; J2405; J7030; J7050; Q0163; Q9967